=== PATIENT | male | born 1945 | race Caucasian/White ===

== ENCOUNTER → 2017-01-20 | Outpatient (CLI) | payer MEDICARE, OTHER ==
[~2017-01-20] MED LIST: ADVIL PM CAPLE1 EACH PO; ASPIR 8181 MG PO; AUGMENTIN875 MG PO; CALCIUM 500 +1 EACH PO; CPAP; CPAP INH; FISH OIL1000 MG PO; GABAPENTIN300 MG PO; HYDRODIURIL25 MG PO; LEVOTHROID (S125 MCG PO; LIPITOR10 MG PO; LOPRESSOR25 MG PO; MSM1000 M1 PO; NEURONTIN400 MG PO; NIZORAL120 ML TOP; NORCO 5-325 MG1 TAB PO; NORVASC10 MG PO; OMEGA-3 + VITA1 EACH PO; REFRESH CLASSI1 EACH OPHTH; TOPROL XL25 MG PO; TRIAMCINOLONE454 GM TOP; TYLENOL EXTRA500 MG PO; TYLENOL WITH C1 EACH PO; TYLENOL325 MG PO; ZOCOR40 MG PO; ZOLOFT100 MG PO; ZOLPIDEM TARTRAT5 MG PO
== END ==
LOC: LGSMG 15:27
DX: R05 Cough (principal)

== ENCOUNTER → 2017-03-28 | Outpatient (CLI) | payer MEDICARE, OTHER ==
--- NOTE | ~2017-03-28 | ESTC ---
Cardiac Perfusion Imaging Demographics Patient Name INDERJIT Navarro Gender Male Patient Number [id number] Race Visit Number [id number] Ethnicity [employer] ID Room Number Accession Number [id number] Height 72 inches Date of 1945 Weight 340 pounds Catarino Navarro MD Interpreting Kimberlyn Orozco MD Date of study 03/28/2017 Physician Supervising /CUCA Kirk [place] Technologist Elissa Thomassay JUDY Tyler Ordering Physician Kimberlyn Orozco MD Stress surveillance technician Stress ECG Reading Lloyd Kirk Nurse Andrea Oconnell Physician JUDY Borjas RN Procedure Procedure Type: Nuclear Stress Test:Pharmacological, Lexiscan Procedure Start time: 03/28/2017 00:00 Indications: Shortness of breath. Risk Factors The patient risk factors include:hypercholesterolemia. Conclusions Summary Cardiolite SPECT images demonstrate homogenous uptake of radioactive tracer. No evidence of inducible reversible defect and no evidence of underlying fixed defect. Normal TID ratio of 0.95 Gated images demonstrate normal left ventricular function without inducible wall motion abnormalities, LVEF is 60% Stress Protocols Resting ECG RSR with non specific ST anfd T wave changes Resting HR:75 bpm Resting BP:142/63 mmHg Pre-stress physical exam: Pharmacologic stress testing was performed due to patient has bad knees . Patient assessed by Heather Desai APRN prior to testing. Stress Protocol:Pharmacologic Peak HR:78 bpm HR response: Appropriate Peak BP:133/60 mmHg BP response: Appropriate Predicted HR: 147 bpm HR/BP product:[id number] % of predicted HR: 53 Reason for termination:Infusion complete ECG Findings No ECG changes suggestive of ischemia. Arrhythmias No rhythm abnormality. Symptoms Shortness of breath. Nausea. Stress Interpretation Appropriate hemodynamic response to Lexiscan. No significant ST-T wave changes with Lexiscan. ECG portion is negative for ischemia by diagnostic criteria. Stress supervision and interpretation provided by Kathleen Desai APRN . Imaging Results Summed scores - Summed stress score: 2 - Summed rest score: 0 - Summed difference score: 2 Stress ejection Ejection fraction:60 % EDV :151 ml ESV :60 ml Stroke volume :91 ml LV mass :146 gr Imaging Protocols Rest Stress Isotope:Tc99m Sestamibi IV Isotope: Tc99m Sestamibi IV Isotope dose:16.3 mCi Isotope dose:47.2 mCi Date:03/28/2017 07:22 Date:03/28/2017 09:25 Technique: SPECT Technique: Gated Supine SPECT Supine Scan Time:45-60 minutes post Scan Time:45-60 minutes post injection injection Procedure Medications - Regadenoson (Lexiscan) 0.4 mg IV over 10-15 sec. I.V. 0.4 mg. Medications administered per verbal order and read back to physician prior to administration. Medical History Admission Data Admission date: 03/28/2017 Admission Time: 06:54 Hospital Status: Outpatient. Signatures dtt: Ernesto Sofia (cardio) dtd: 03/28/17 0000 Physician Self Edit
== END | disposition disaster alternative care site (69) ==
LOC: GRAD 06:54
DX: R06.02 Shortness of breath (principal)
CPT/HCPCS: A9500; J2785

== ENCOUNTER → 2017-03-31 | Outpatient (CLI) | payer MEDICARE, OTHER | LOC: LGSMG 10:44 | DX: R60.9 Edema, unspecified (principal); I10 Essential (primary) hypertension; E83.51 Hypocalcemia; N28.9 Disorder of kidney and ureter, unspecified ==

== ENCOUNTER → 2017-03-31 | Outpatient (CLI) | payer MEDICARE, OTHER | END | disposition disaster alternative care site (69) | LOC: GRAD 13:02 | DX: N28.9 Disorder of kidney and ureter, unspecified (principal); N18.3 Chronic kidney disease, stage 3 (moderate); R39.15 Urgency of urination; Q61.02 Congenital multiple renal cysts ==